=== PATIENT | female | born 1990 | race Hispanic/Latino ===

== ENCOUNTER 2018-11-25 11:06 | Inpatient (IN) | payer OTHER ==
--- NOTE | 2018-11-25 14:46 | PR ---
[facility] [place] [facility] [address] [facility] [place], [place] [address] Signed Progress Notes IP Datetime Report Generated by CPN: 11/25/2018 14:46 PROGRESS NOTES: [id number] Impression: Rupture of membranes Plan: Augmentation; Anticipate Vaginal Delivery VITAL SIGNS: [id number] Vital Signs: Reviewed; Within Normal Limits EXAM: [id number] Dilatation: 4.0 Effacement: 80 Station: -1 Uterine Contractions: every 3-5 minutes MEMBRANES: [id number] Membrane Status: Ruptured Comments: Not feeling contractions and no cervical change since admission, so will start Low dose Pitocin. Discussed plan with patient Fetus A: [id number] FHR Baseline: 145 Variability: Moderate 6-25bpm Accelerations: 15X15 Presentation: Vertex Fetus B: [id number] Signing Physician: Karan Brice MD Copies: ~ *Electronically Signed* 11/25/18 1446 KARAN BRICE MD PATIENT NAME: JASON WREN PROGRESS NOTE DATE OF : 89 PHYSICIAN: KARAN BRICE MD RPT #: [id number] REPORT IS CONFIDENTIAL AND NOT TO BE RELEASED WITHOUT AUTHORIZATION
--- NOTE | 2018-11-25 18:23 | PR ---
[facility] [address] [facility] [place], [place] [address] Signed Progress Notes IP Datetime Report Generated by CPN: 11/25/2018 18:23 PROGRESS NOTES: [id number] Impression: Normal progression of labor Plan: Continue present management; Augmentation; Anticipate Vaginal Delivery VITAL SIGNS: [id number] Vital Signs: Reviewed; Within Normal Limits EXAM: [id number] Dilatation: 5.0 Effacement: 80 Station: -1 Uterine Contractions: every 2-3 minutes MEMBRANES: [id number] Membrane Status: Ruptured Amniotic Fluid Color: Clear Comments: Getting uncomofrtable with contractions, would like Epidural, contractions not showing up well and on Pitocin. IUPC and FECG applied Epidural order placed Fetus A: [id number] FHR Baseline: 130 Variability: Moderate 6-25bpm Accelerations: 15X15 Presentation: Vertex Fetus B: [id number] Signing Physician: Blas Brice MD Copies: ~ *Electronically Signed* 11/25/18 1823 BLAS BRICE MD PATIENT NAME: SYDNI WRENLIS HAY PROGRESS NOTE DATE OF : 89 PHYSICIAN: BLAS BRICE MD RPT #: [id number] REPORT IS CONFIDENTIAL AND NOT TO BE RELEASED WITHOUT AUTHORIZATION
--- NOTE | 2018-11-25 22:26 | PR ---
[facility] [address] [facility] [place], [place] [address] Signed Progress Notes IP Datetime Report Generated by CPN: 11/25/2018 22:26 PROGRESS NOTES: [id number] Impression: Normal progression of labor Plan: Continue present management; Anticipate Vaginal Delivery VITAL SIGNS: [id number] Vital Signs: Reviewed; Within Normal Limits EXAM: [id number] Dilatation: 9.0 Effacement: 90 Station: -1 Uterine Contractions: every 2 minutes MEMBRANES: [id number] Membrane Status: Ruptured Amniotic Fluid Color: Clear Comments: Comfortable with Epidural, continuing to progress. WIll continue to monitor Fetus A: [id number] FHR Baseline: 150 Variability: Moderate 6-25bpm Accelerations: 15X15 Decelerations: Variable Presentation: Vertex Fetus B: [id number] Signing Physician: Karan Brice MD Copies: ~ *Electronically Signed* 11/25/18 2226 KARAN BRICE MD PATIENT NAME: JASON WREN PROGRESS NOTE DATE OF : 89 PHYSICIAN: KARAN BRICE MD RPT #: [id number] REPORT IS CONFIDENTIAL AND NOT TO BE RELEASED WITHOUT AUTHORIZATION
--- NOTE | 2018-11-26 01:07 | PR ---
[facility] [address] [facility] [place] [address] Signed Progress Notes IP Datetime Report Generated by CPN: 11/26/2018 01:07 PROGRESS NOTES: [id number] Impression: Normal progression of labor Plan: Continue present management VITAL SIGNS: [id number] Vital Signs: Reviewed; Within Normal Limits EXAM: [id number] Dilatation: 10.0 Effacement: 100 Station: 1 Uterine Contractions: every 2-3 minutes MEMBRANES: [id number] Membrane Status: Ruptured Amniotic Fluid Color: Clear Comments: Pushing well Fetus A: [id number] FHR Baseline: 150 Variability: Moderate 6-25bpm Accelerations: 15X15 Decelerations: Variable Presentation: Vertex Other Presentation: ANNE Fetus B: [id number] Signing Physician: Blas Brice MD Copies: ~ *Electronically Signed* 11/26/18 010 BLAS BRICE MD PATIENT NAME: JASON WREN PROGRESS NOTE DATE OF : 89 PHYSICIAN: BLAS BRICE MD RPT #: [id number] REPORT IS CONFIDENTIAL AND NOT TO BE RELEASED WITHOUT AUTHORIZATION
--- NOTE | 2018-11-26 02:52 | PR ---
[facility] [address] [facility] [place] [address] Signed PP Progress Notes Datetime Report Generated by CPN: 11/26/2018 02:52 SUBJECTIVE: [id number] Pain: Within normal limits Pain Comments: Feeling weak, but conscious, stable Nausea/Vomiting: Denies Vital Signs: [id number] Vital Signs: Reviewed Notable Details: BP 67/32,, pulse 116 EXAM: [id number] Abdomen/Uterus: Normal Lochia: Normal IMPRESSION/PLAN/PROCEDURES: [id number] Other Impression: PP Hemorrhage with hypotension Progress Notes: Patient lying down flat. Start 2nd IV Already receiving IV fluids with Pitocin, will give 1 liter bolus of NS. Continue close monitoring Signing Physician: Karan Brice MD Copies: ~ *Electronically Signed* 11/26/18 0252 KARAN BRICE MD PATIENT NAME: JASON WREN PROGRESS NOTE DATE OF : 89 PHYSICIAN: KARAN BRICE MD RPT #: [id number] REPORT IS CONFIDENTIAL AND NOT TO BE RELEASED WITHOUT AUTHORIZATION
--- NOTE | 2018-11-27 09:09 | PR ---
[facility] [address] [facility] [place], [place] [address] Signed PP Progress Notes Datetime Report Generated by CPN: 11/27/2018 09:09 SUBJECTIVE: [id number] Pain: Within normal limits Pain Comments: Feeling weak, but conscious, stable Nausea/Vomiting: Denies Vital Signs: [id number] Vital Signs: Reviewed; Within Normal Limits Notable Details: PP Hgb/Hct = 6.9/20.3 EXAM: [id number] Abdomen/Uterus: Normal Lochia: Normal Extremities: Normal IMPRESSION/PLAN/PROCEDURES: [id number] Impression: Normal progression Other Impression: PP Anemia due to immediate PP hemorrhage Plan: Continue present management Procedures: Transfusion Progress Notes: Doing well, without complaint, no excessive bleeding, but decreasd Hgb/Hct. Discussed blood transfusion; risks/benefits. Will transfuse 3 units PRBC's and recheck in morning Signing Physician: Karan Brice MD Copies: ~ *Electronically Signed* 11/27/18908 KARAN BRICE MD PATIENT NAME: JASON WREN PROGRESS NOTE DATE OF : 89 PHYSICIAN: KARAN BRICE MD RPT #: [id number] REPORT IS CONFIDENTIAL AND NOT TO BE RELEASED WITHOUT AUTHORIZATION
--- NOTE | 2018-11-28 11:43 | PR ---
[facility] [address] [facility] [place], [place] [address] Signed PP Progress Notes Datetime Report Generated by CPN: 11/28/2018 11:43 SUBJECTIVE: [id number] Pain: Within normal limits Pain Comments: Feeling weak, but conscious, stable Nausea/Vomiting: Denies Vital Signs: [id number] Vital Signs: Reviewed Notable Details: PP Hgb/Hct = 8.7/26.2 EXAM: [id number] Abdomen/Uterus: Normal Lochia: Normal Extremities: Normal IMPRESSION/PLAN/PROCEDURES: [id number] Impression: Normal progression Other Impression: PP Anemia due to immediate PP hemorrhage Plan: Discharge Procedures: Transfusion Progress Notes: Feeling better after transfusion. Patient had increased pain in arm, decreased BP with first unit, so transfusion stopped and unit sent back to lab for evaluation. No problems with next 2 units. Patient now ready to go home, but baby not discharged yet Signing Physician: Karan Brice MD Copies: ~ *Electronically Signed* 11/28/18 1143 KARAN BRICE MD PATIENT NAME: JASON WREN PROGRESS NOTE DATE OF : 92 PHYSICIAN: KARAN BRICE MD RPT #: [id number] REPORT IS CONFIDENTIAL AND NOT TO BE RELEASED WITHOUT AUTHORIZATION
== END 2018-11-28 12:00 | disposition home or self-care (01) | DRG 806 ==
LOC: FBCO 11:06 → FBC 11:34 → FBCO 11-30 08:16
PROVIDERS: ADMIT General Practice
PROC: 10H07YZ Insertion of Other Device into Products of Conception, Via Natural or Artificial Opening (ICD-10-PCS; 2018-11-25)
PROC: 00HU33Z Insertion of Infusion Device into Spinal Canal, Percutaneous Approach (ICD-10-PCS; 2018-11-25)
PROC: 3E0R3BZ Introduction of Anesthetic Agent into Spinal Canal, Percutaneous Approach (ICD-10-PCS; 2018-11-25)
PROC: 10E0XZZ Delivery of Products of Conception, External Approach (ICD-10-PCS; principal; 2018-11-26)
PROC: 0KQM0ZZ Repair Perineum Muscle, Open Approach (ICD-10-PCS; 2018-11-26)
PROC: 0UQMXZZ Repair Vulva, External Approach (ICD-10-PCS; 2018-11-26)
PROC: 30233N1 Transfusion of Nonautologous Red Blood Cells into Peripheral Vein, Percutaneous Approach (ICD-10-PCS; 2018-11-27)
PROC: 3E0234Z Introduction of Serum, Toxoid and Vaccine into Muscle, Percutaneous Approach (ICD-10-PCS; 2018-11-28)
DX: O36.63X0 Maternal care for excessive fetal growth, third trimester, not applicable or unspecified (principal); O99.324 Drug use complicating childbirth; Z37.0 Single live birth; O72.1 Other immediate postpartum hemorrhage; D62 Acute posthemorrhagic anemia; Z3A.39 39 weeks gestation of pregnancy; O42.90 Premature rupture of membranes, unspecified as to length of time between rupture and onset of labor, unspecified weeks of gestation; O76 Abnormality in fetal heart rate and rhythm complicating labor and delivery; F12.90 Cannabis use, unspecified, uncomplicated; O71.82 Other specified trauma to perineum and vulva; O70.1 Second degree perineal laceration during delivery; E55.9 Vitamin D deficiency, unspecified; O99.284 Endocrine, nutritional and metabolic diseases complicating childbirth; O90.81 Anemia of the puerperium; Z23 Encounter for immunization; Z87.891 Personal history of nicotine dependence; Z88.0 Allergy status to penicillin
CPT/HCPCS: 01960; 36415; 36430; 85027; 86850; 86880; 86900; 86901; 86920; 90707; J2590; J7030; J7060; J7120; P9016